=== PATIENT | female | born 1980 | race African-American/Black ===

== ENCOUNTER 2019-05-11 11:22 | Emergency (ER) | payer MEDICAID, OTHER ==
[2019-05-11 11:37] VITALS: RESP 16; TEMP 98.2
[2019-05-11] MEDS ORDERED: methylPREDNISolone SOD SUCCI 125 MG/2 ML VIAL IM ONE (12:11)
[2019-05-11] MEDS ORDERED: IPRATROPIUM-ALBUTEROL 3 ML NEB INHALATION STA (12:11)
--- NOTE | 2019-05-11 12:32 | ED ---
URI HPI - General Chief Complaint: Upper Respiratory Infection Stated Complaint: sore throat/headache Time Seen by Provider: 05/11/19 11:38 Source: patient, RN notes reviewed, old records reviewed Mode of arrival: ambulatory Limitations: no limitations - History of Present Illness Initial Comments: Patient's 39-year-old female presents for his pharmacy of cough congestion sore throat and headache. Symptoms started 4 days ago Patient taking NyQuil but no significant relief in her symptoms. Patient's had no recent medications per she is a smoker. She states that feels like her infection settled into her chest. - Related Data Home Medications Medication Instructions Recorded Confirmed amLODIPine [Norvasc] 10 mg PO DAILY 05/11/19 05/11/19 Previous Rx's Medication Instructions Recorded Albuterol Inhaler [Ventolin Hfa 1 - 2 puff INHALATION RT-Q6H PRN 05/11/19 Inhaler] #1 inhaler Azithromycin [Zithromax] 0 mg PO DIRECTED #6 tab 05/11/19 predniSONE 10 mg PO DAILY #15 tab 05/11/19 Allergies Allergy/AdvReac Type Severity Reaction Status Date / Time ibuprofen [From Motrin] Allergy Unknown Verified 05/11/19 12:03 Review of Systems ROS Statement: Those systems with pertinent positive or pertinent negative responses have been documented in the HPI. ROS Other: All systems not noted in ROS Statement are negative. Past Medical History Past Medical History: No Reported History History of Any Multi-Drug Resistant Organisms: None Reported Past Surgical History: No Surgical Hx Reported Past Psychological History: No Psychological Hx Reported Smoking Status: Current every day smoker Past Alcohol Use History: Occasional Past Drug Use History: Marijuana General Exam - General Exam Comments Initial Comments: 39-year-old female. Alert and oriented 3. Limitations: no limitations General appearance: alert, in no apparent distress Head exam: Present: atraumatic, normocephalic, normal inspection Eye exam: Present: normal appearance, PERRL, EOMI. Absent: scleral icterus, conjunctival injection, periorbital swelling ENT exam: Present: normal exam, mucous membranes moist Neck exam: Present: normal inspection. Absent: tenderness, meningismus, lymphad enopathy Respiratory exam: Present: wheezes. Absent: normal lung sounds bilaterally, respiratory distress, rales, rhonchi, stridor Cardiovascular Exam: Present: regular rate, normal rhythm, normal heart sounds. Absent: systolic murmur, diastolic murmur, rubs, gallop, clicks GI/Abdominal exam: Present: soft, normal bowel sounds. Absent: distended, tenderness, guarding, rebound, rigid Back exam: Present: normal inspection Neurological exam: Present: alert, oriented X3, CN II-XII intact Psychiatric exam: Present: normal affect, normal mood Course Vital Signs 05/11/19 05/11/19 05/11/19 11:34 12:30 12:38 Temperature 98.2 F Pulse Rate 82 84 88 Respiratory 16 Rate Blood Pressure 130/90 O2 Sat by Pulse 100 Oximetry 05/11/19 05/11/19 13:08 13:28 Temperature Pulse Rate 77 Respiratory 16 16 Rate Blood Pressure 134/76 O2 Sat by Pulse 99 Oximetry Medical Decision Making - Medical Decision Making 39-year-old female presents today for cough congestion headache. She did have some wheezing noted on exam. Patient treatment, and Solu-Medrol. She said improvement in a reevaluation of her wheezing. Chest x-rays negative for any acute process. Discussed likely bronchitis. Discussed with the Patient on steroids and inhaler. Discussed appropriate follow-up with primary care doctor. All questions were answered. I also discussed the Patient the importance of smoking cessation for 5 minutes. - Radiology Data Radiology results: report reviewed Chest x-ray is negative for any acute disease. Disposition Clinical Impression: URI (upper respiratory infection), Bronchitis Disposition: HOME SELF-CARE Condition: Good Instructions (If sedation given, give patient instructions): Upper Respiratory Infection (ED) Additional Instructions: Patient's prescriptions are prescribed a [facility] and [address] [place] [address]. Patient should take the medications as prescribed and continue a decongestant medicines and use albuterol inhaler. Patient's and stop smoking. Return to emergency department if any alarming signs or symptoms occur. Prescriptions: predniSONE 10 mg PO DAILY #15 tab Albuterol Inhaler [Ventolin Hfa Inhaler] 1 - 2 puff INHALATION RT-Q6H PRN #1 inhaler PRN Reason: Shortness Of Breath Azithromycin [Zithromax] 0 mg PO DIRECTED #6 tab Is patient prescribed a controlled substance at d/c from ED?: No Referrals: None,Stated [Primary Care Provider] - 1-2 days Hayley Mercado MD [STAFF PHYSICIAN] - 1-2 days Time of Disposition: 13:14
--- NOTE | 2019-05-11 13:09 | XR ---
EXAMINATION TYPE: XR chest 2V DATE OF EXAM: 05/11/2019 COMPARISON: NONE HISTORY: Cough and congestion TECHNIQUE: Frontal and lateral views of the chest are obtained. FINDINGS: There is no focal air space opacity, pleural effusion, or pneumothorax seen. The cardiac silhouette size is within normal limits. The osseous structures are intact. IMPRESSION: No acute cardiopulmonary process.
[2019-05-11 13:29] VITALS: BP 134/76; PULSE 77
== END 2019-05-11 13:28 | disposition home or self-care (01) ==
LOC: EC 11:22
DX: J06.9 Acute upper respiratory infection, unspecified (principal); J40 Bronchitis, not specified as acute or chronic; F17.200 Nicotine dependence, unspecified, uncomplicated; Z79.899 Other long term (current) drug therapy; Z88.6 Allergy status to analgesic agent
CPT/HCPCS: 94640; 71046; 99284; 96372; J2930

== ENCOUNTER → 2024-10-14 | Outpatient (CLI) | payer OTHER ==
--- NOTE | 2024-10-14 10:04 | US ---
EXAMINATION TYPE: US abdomen complete DATE OF EXAM: 10/14/2024 COMPARISON: NONE CLINICAL INDICATION: Female, 44 years old with history of R10.84 ABD PAIN N83.209 UNSPECIFIED OVARIAN CYST,; Generalized ABD pain TECHNIQUE: Grayscale and color Doppler imaging of the abdomen was performed. FINDINGS: EXAM MEASUREMENTS: Liver Length: 15.2 cm Gallbladder Wall: 0.2 cm CBD: 0.3 cm, color Doppler imaging was utilized to isolate the common bile duct for measurement. Spleen: 8.7 cm Right Kidney: 11.4 x 4.5 x 4.8 cm Left Kidney: 11.0 x 6.0 x 5.6 cm AUDIT TECH NOTES: Pancreas: wnl, tail obscured by overlying bowel gas Liver: wnl, no dilated ducts, masses or cysts. Gallbladder: wnl Evidence for sonographic Johnson's sign: No CBD: wnl Spleen: wnl Right Kidney: wnl, No hydronephrosis, calculi or masses seen Left Kidney: wnl, No hydronephrosis, calculi or masses seen Upper IVC: wnl Abd Aorta: wnl, distal portion gassed out The liver is homogenous. The intrahepatic portion of the IVC and proximal abdominal aorta are within normal limits. There is no evidence of cholelithiasis. Common bile duct is unremarkable. The visu alized portions of the pancreas are homogenous. The spleen is unremarkable. Kidneys are symmetric a nd free of hydronephrosis. No renal lesions are seen. IMPRESSION: No ultrasound evidence for acute abdominal process. [facility], , 10/14/2024 10:02 AM
--- NOTE | 2024-10-14 10:07 | US ---
EXAMINATION TYPE: US pelvis complete transvag DATE OF EXAM: 10/14/2024 COMPARISON: NONE CLINICAL INDICATION: Female, 44 years old with history of R10.84 ABD PAIN N83.209 UNSPECIFIED OVARIAN CYST,; Pt states lower pelvic pain x 2 years, pt states very abnormal menses, heavy, and irregular TECHNIQUE: Transvaginal (TV) and Transabdominal (TA) . Transabdominal grayscale sonographic images of the pelvis were acquired. Transvaginal sonographic im ages were medically necessary to better assess the following anatomy: TV ordered by physician, TA sup plemented to better evaluate pelvis Doppler imaging: Not performed. FINDINGS: Date of LMP: Pt states 2 menses in September EXAM MEASUREMENTS: Uterus: 9.9 x 3.5 x 3.5 cm Endometrial Stripe: 0.4 cm Right Ovary: Unable to visualize due to large pelvic mass Left Ovary: Unable to visualize due to large pelvic mass 1. Uterus: Anteverted, difficult to evaluate due to large pelvis mass 2. Endometrium: wnl 3. Right Ovary: Unable to visualize due to large pelvic mass 4. Left Ovary: Unable to visualize due to large pelvic mass 5. Bilateral Adnexa: wnl 6. Posterior cul-de-sac: wnl Large, solid, heterogenous pelvic mass measuring 12.3 x 11.2 x 15.9 cm with internal color flow. Ante verted uterus with poor visualization due to pelvic mass. Endometrium is within normal limits. Both o varies are nonvisualized due to pelvic mass. No free fluid identified. IMPRESSION: 1. Large pelvic mass measuring up to 15.9 cm with etiologies including fibroid versus uterine neoplas m versus ovarian neoplasm versus other. Gynecology consult with MRI pelvis is recommended. 2. Endometrium is within normal limits. 3. Nonvisualization of both ovaries due to pelvic mass. [facility], , 10/14/2024 10:05 AM
== END | disposition home or self-care (01) ==
LOC: RADUSWWP 08:38
PROVIDERS: ATTEND Family Medicine
DX: R19.09 Other intra-abdominal and pelvic swelling, mass and lump (principal); R10.84 Generalized abdominal pain; N83.209 Unspecified ovarian cyst, unspecified side
CPT/HCPCS: 76700; 76830; 76856